=== PATIENT | male | born 1965 | race Caucasian/White ===

== ENCOUNTER → 2019-04-25 09:11 | Outpatient (CLI) | payer OTHER ==
[2015-09-09 12:41] VITALS: BMI 29.2
[~2019-04-25 09:11] MED LIST: ADVIL COLD & SI1 TAB PO; COREG12.5 MG PO; LIPITOR20 MG PO; LISINOPRIL10 MG PO; NITROQUICK0.4 MG SL; PLAVIX75 MG PO; PROTONIX40 MG PO; TOPROL XL25 MG PO
--- NOTE | 2019-04-28 11:12 | EC ---
PATIENT:KEVIN SIDHU DATE OF SERVICE: 04/25/19 SEX: M MEDICAL RECORD: [id number] DATE OF : 63 LOCATION:[facility] AGE OF PATIENT: 53 ADMISSION DATE: 04/25/19 REFERRING PHYSICIAN: INTERPRETING PHYSICIAN: GEORGE MCBRIDE MD ECHOCARDIOGRAM REPORT ECHO CHARGES 4 ECHO COMPLETE Date: 04/25/19 CLINICAL DIAGNOSIS: HTN/MITRAL REGURG ECHOCARDIOGRAPHIC MEASUREMENTS (adult normal given) AC root (d.<3.7cm) 3.5 cm LV Septum d (<1.2 cm> 1.3 cm Valve Excursion 1.6 cm LV Septum (systole) 1.6 cm Left Atria (s.<4.0cm> 3.8 cm LVPW d(<1.2cm) 1.5 cm RV (d.<2.3cm) 3.9 cm LVPW (sytole) 2.0 cm LV diastole(<5.6CM) 5.5 cm MV E-F(>70mm/sec) cm LV systole 3.4 cm LVOT Diameter 2.1 cm MV exc.(>10mm) 1.2 cm Est.ejection fraction (50-75%) % DOPPLER: LVIT cm/sec A 69.0 cm/sec E 86.0 cm/sec LA cm/sec RVSP 17 mmHg LVOT 98 cm/sec AOP1/2T m/s Asc. Ao 126 cm/sec RVOT 104 cm/sec RA cm/sec PA cm/sec AV Gradient Peak 6.40 mmHg AV Mean 3.17 mmHg AV Area 2.9 cm MV Gradient Peak 3.07 mmHg MV Mean 1.19 mmHg MV Area cm COMMENTS: Crester: 2 TREVOR AWAN Consulting Technical Director: 3 Dr. Leon TAPE# PACS Pericardial Effusion N DATE OF SERVICE: Adequate 2D, color flow, spectral Doppler, and M-mode. Borderline LVH. LV internal dimensions are normal. Wall motion normal. EF is greater than or equal to 55%. Aortic valve is tricuspid. No evidence of stenosis by Doppler interrogation. Left atrium is normal at 3.8 cm. Mitral valve shows no prolapse. Mild MR. Right-sided chambers grossly normal. Trace TR. TRANSINT:[id number] Voice Confirmation ID: [id number] DOCUMENT ID: [id number] ECHOCARDIOGRAM REPORT [id number] KEVIN SIDHUFLORENCE COMM[facility] HEALTHCAREJohn GEORGE MCBRIDE MD at 1112 CC: [id number] DICTATION DATE: 04/28/19828 MANAGER THERAPY: 04/28/19 1056 DEP CLI 04/25/19 [id number] [place] [address]
== END | disposition home or self-care (01) ==
LOC: D.HCCECHO 09:11
PROVIDERS: ATTEND Internal Medicine Interventional Cardiology
DX: I10 Essential (primary) hypertension (principal)